=== PATIENT | female | born 1955 | race Caucasian/White ===

== ENCOUNTER 2017-07-22 17:31 | Emergency (ER) | payer OTHER ==
[~2017-07-22] VITALS: Ht 167.6 cm; Wt 69.5 kg
[~2017-07-22 17:31] MED LIST: ASCO10003 PO; HYDR1CAP85 PO; LEVO75TA36 PO; OMEG340C PO; ST J1CAP PO
[2017-07-22 17:53] VITALS: Ht 167.6 cm; Wt 69.5 kg
[2017-07-22] MEDS ORDERED: LISI40TA PO (18:04)
[2017-07-22] MEDS ORDERED: HYDROmorphone INJ 1 MG/ML SYR IV STA ×4 (19:12→22:38)
[2017-07-22] MEDS ORDERED: METOCLOPRAMIDE HCL INJ 5 MG/ML 2 ML VIAL IV STA (19:12)
--- NOTE | 2017-07-22 19:16 | EMERGENCY ROOM VISIT NOTE ---
History Report prepared by Jarrett: Schuyler Potts Under the Supervision of: Dr. Mirza Vines M.D. First contact with patient: 19:00 Chief Complaint: ABDOMINAL PAIN Stated Complaint: ABDOMINAL PAIN Nursing Triage Summary: pt reports for 3 weeks having constipation then diarrhea has hx of diverticulosis irritable bowel History of Present Illness The patient is a 61 year old female who presents to the Emergency Room with complaints of constant abdominal pain for the past 2 nights. She currently rates her discomfort as a 10/10 in severity. The patient states that a couple weeks ago she also had problems with constipation, though she then had diarrhea. The patient additionally notes that she has been passing a lot of gas. She states that she has a history of IBS and diverticulosis. The patient states that she does not have an ostomy in place. She reports that she also has a history of an appendectomy, and some of her intestines removed. The patient notes that she still has her gall bladder, and this morning she took Tylenol and Aleve. Source of History: patient Onset: two nights ago Position: abdomen Symptom Intensity: 10/10 Timing: constant Associated Symptoms: + diarrhea Note: Associated symptoms: Passing gas. Review of Systems See HPI for pertinent positives & negatives. A total of 10 systems reviewed and were otherwise negative. Past Medical & Surgical Medical Problems: (1) Benign hypertension (2) Diverticulitis (3) Diverticulosis (4) Laparoscopy (5) Ovarian cyst Social History Smoking Status: Current Every Day Smoker Alcohol Use: heavy Drug Use: marijuana Marital Status: single, Housing Status: lives with family Occupation Status: employed, disabled Current/Historical Medications Scheduled Nmpitrwikcp-Retcmokrwhb-Iuw C- (Glucosamine Chondroitin), 1 CAP PO QAM Levothyroxine Sodium (Levothyroxine Sodium), 100 MCG PO DAILY Lisinopril (Zestril), 40 MG PO DAILY Tiro-3 Fatty Acids (Tiro 3), 3 CAP PO BID Newton's Wort ([place] Perf (St Tam Wort), 300 MG PO TID Scheduled PRN Clonazepam (Clonazepam), 0.25 MG PO DAILY PRN for Anxiety Hydroxyzine Hcl (Atarax), 10 MG PO DAILY PRN for Itching Allergies Coded Allergies: Nickel (Verified Allergy, Unknown, Unknown, 07/22/17) Physical Exam Vital Signs Date Time Temp Pulse Resp B/P (MAP) Pulse Ox O2 Delivery O2 Flow Rate FiO2 07/23/17 03:45 37.1 106 16 137/71 97 07/23/17 02:21 37.1 106 18 125/73 97 Room Air 07/23/17 00:00 80 20 142/82 97 Room Air 07/22/17 23:54 38.0 100 20 143/81 92 Room Air 07/22/17 22:48 108 20 138/77 95 Room Air 07/22/17 21:00 99 20 149/78 97 Room Air 07/22/17 17:53 37.1 107 18 134/65 96 Room Air Physical Exam GENERAL: Patient is an uncomfortable-appearing well-nourished female HEAD: Normocephalic atraumatic EYES: Ocular movements intact pupils equal and react to light OROPHARYNX mucous membranes are moist no exudates present no erythema or edema present NECK: Supple no nuchal rigidity CHEST: Good equal expansion LUNGS: Hyperventilating. Clear and equal to auscultation CARDIAC: Normal S1 and S2 ABDOMEN: Tender in the right upper quadrant. Soft no guarding BACK: No CVA tenderness EXTREMITIES: No pain upon palpation normal muscle strength in all groups no clubbing cyanosis or edema NEURO: Patient is following commands and answering questions appropriately. Alert and oriented x3 Cranial Nerves 2-12 grossly intact Medical Decision & Procedures ER Provider Diagnostic Interpretation: Radiology results as stated below per my review and radiologist interpretation: ABDOMEN AND PELVIS CT WITH IV AND ORAL CONTRAST CT DOSE: 343.18 mGy.cm HISTORY: Right upper quadrant abdominal pain. TECHNIQUE: Multiaxial CT images of the abdomen and pelvis were performed following the use of intravenous and oral contrast. A dose lowering technique was utilized adhering to the principles of ALARA. COMPARISON STUDY: Abdomen and pelvis CT 08/09/2013. FINDINGS: Artifact versus filling defects within the right lower lobe pulmonary arteries. Mild dependent changes seen at the lung bases. Geographic increased density within the femoral heads consistent with avascular necrosis . No femoral head collapse at this time. Severe degenerative disc disease at the L4-5 disc space. The liver, spleen, adrenal glands, and pancreas are unremarkable. The gallbladder is distended. No gallbladder wall thickening. Normal caliber common bile duct. Trace perihepatic and perisplenic fluid. Small amount of fluid along the right paracolic gutter. Small amount of pelvic free fluid. The bladder is unremarkable. The uterus is within normal limits. No change in the left gluteal intramuscular fat-containing lesion. This favors a lipoma. Focal scarring within the upper pole of the left kidney. The right kidney is mildly enlarged compared to the prior study. No hydronephrosis. Thickening within the distal sigmoid colon. Multiple colonic diverticula. Small foci of extraluminal gas within the deep pelvis surrounding the thickened distal sigmoid colon. There is mild pericolonic fat stranding. Therefore, these findings likely represent microperforation secondary to acute diverticulitis. Small loculated gas and fluid collection within the deep pelvis which measures 4 cm. This is consistent with a pericolonic abscess. Mild thickening within the small bowel loops is likely reactive to the suspected mild peritonitis. There is mild diffuse mesenteric fat stranding/edema. Postoperative changes consistent with prior right hemicolectomy. IMPRESSION: 1. Moderate thickening at the distal sigmoid colon mild pericolonic fat stranding. There is also a 4 cm pericolonic abscess and a few small foci of extraluminal gas surrounding the thickened distal sigmoid colon. Therefore, findings are consistent with acute sigmoid diverticulitis with perforation and abscess formation. Recommend follow up to resolution to exclude the less likely possibility of an underlying colonic mass. 2. Mild mesenteric edema, mild thickening of the small bowel loops, and a small amount of fluid within the pelvis. This is likely reactive to the suspected peritonitis. 3. Mildly distended gallbladder. No gallbladder wall thickening. 4. Interval enlargement of the right kidney compared to the prior study. This is of uncertain clinical significance. Recommend correlation with renal function studies. No hydronephrosis. 5. Possible filling defects seen within the right lower lobe pulmonary arteries. This could be due to artifact. However, follow chest CTA is recommended to exclude the possibility of a pulmonary embolism. 6. Additional findings as described above. Electronically signed by: Ivan Baird M.D. 07/22/2017 10:31 PM Dictated Date/Time: 07/22/2017 10:08 PM ABDOMINAL ULTRASOUND, RIGHT UPPER QUADRANT HISTORY: Right upper quadrant abdominal pain. COMPARISON: Abdomen and pelvis CT 08/09/2013. FINDINGS: Pancreas: The pancreatic tail is obscured by overlying bowel gas. The remaining portions of the pancreas are within normal limits. Liver: No hepatic masses. Trace perihepatic ascites. Gallbladder: Mildly distended. No gallstones. There may be a small amount of sludge versus artifact. No gallbladder wall thickening. CBD: 4 mm. Right kidney: No hydronephrosis. IMPRESSION: 1. The gallbladder is mildly distended. No gallstones or gallbladder wall thickening. Artifact versus sludge within the gallbladder. 2. Trace perihepatic ascites. Electronically signed by: Ivan Baird M.D. 07/22/2017 8:37 PM Dictated Date/Time: 07/22/2017 8:35 PM CHEST ONE VIEW PORTABLE HISTORY: Right upper quadrant abdominal pain. COMPARISON: Chest 11/20/2012. FINDINGS: The lungs are clear. Cardiac silhouette is normal in size. No pleural effusions. No pneumothorax. IMPRESSION: No acute process. Electronically signed by: Ivan Baird M.D. 07/22/2017 9:22 PM Dictated Date/Time: 07/22/2017 9:21 PM CTA CHEST: No evidence of PE. Lungs are clear. No pleural effusions. No adenopathy. Heart size is normal. Aorta is unremarkable. Perihepatic complex ascites. Consider proteinaceous material or blood products. This is incompletely imaged Radiologist: Remy Garcia MD Laboratory Results 07/22/17 19:15 Red Blood Count 4.53, Mean Corpuscular Volume 81.7, Mean Corpuscular Hemoglobin 28.3, Mean Corpuscular Hemoglobin Concent 34.6, Mean Platelet Volume 9.1, Neutrophils (%) (Auto) 87.9, Lymphocytes (%) (Auto) 7.0, Monocytes (%) (Auto) 4.8, Eosinophils (%) (Auto) 0.0, Basophils (%) (Auto) 0.1, Neutrophils # (Auto) 13.03, Lymphocytes # (Auto) 1.04, Monocytes # (Auto) 0.71, Eosinophils # (Auto) 0.00, Basophils # (Auto) 0.02 07/22/17 19:15 Test 07/22/17 19:15 07/22/17 20:45 White Blood Count 14.83 K/uL (4.8-10.8) Red Blood Count 4.53 M/uL (4.2-5.4) Hemoglobin 12.8 g/dL (12.0-16.0) Hematocrit 37.0 % (37-47) Mean Corpuscular Volume 81.7 fL (80-100) Mean Corpuscular Hemoglobin 28.3 pg (25-34) Mean Corpuscular Hemoglobin Concent 34.6 g/dl (32-36) Platelet Count 342 K/uL (130-400) Mean Platelet Volume 9.1 fL (7.4-10.4) Neutrophils (%) (Auto) 87.9 % Lymphocytes (%) (Auto) 7.0 % Monocytes (%) (Auto) 4.8 % Eosinophils (%) (Auto) 0.0 % Basophils (%) (Auto) 0.1 % Neutrophils # (Auto) 13.03 K/uL (1.4-6.5) Lymphocytes # (Auto) 1.04 K/uL (1.2-3.4) Monocytes # (Auto) 0.71 K/uL (0.11-0.59) Eosinophils # (Auto) 0.00 K/uL (0-0.5) Basophils # (Auto) 0.02 K/uL (0-0.2) RDW Standard Deviation 44.4 fL (36.4-46.3) RDW Coefficient of Variation 15.0 % (11.5-14.5) Immature Granulocyte % (Auto) 0.2 % Immature Granulocyte # (Auto) 0.03 K/uL (0.00-0.02) Dohle Bodies 1+ Anion Gap 7.0 mmol/L (3-11) Est Creatinine Clear Calc Drug Dose 58.2 ml/min Estimated GFR () 74.9 Estimated GFR (Non- 64.6 BUN/Creatinine Ratio 11.4 (10-20) Calcium Level 9.0 mg/dl (8.5-10.1) Total Bilirubin 0.8 mg/dl (0.2-1) Aspartate Amino Transf (AST/SGOT) 13 U/L (15-37) Alanine Aminotransferase (ALT/SGPT) 15 U/L (12-78) Alkaline Phosphatase 97 U/L (45-117) Total Protein 8.2 gm/dl (6.4-8.2) Albumin 3.3 gm/dl (3.4-5.0) Globulin 4.9 gm/dl (2.5-4.0) Albumin/Globulin Ratio 0.7 (0.9-2) Lipase 56 U/L (73-393) Urine Color KAPIL Urine Appearance CLEAR (CLEAR) Urine pH 5.5 (4.5-7.5) Urine Specific [place] 1.020 (1.000-1.030) Urine Protein 1+ (NEG) Urine Glucose (UA) NEG (NEG) Urine Ketones 1+ (NEG) Urine Occult Blood 1+ (NEG) Urine Nitrite NEG (NEG) Urine Bilirubin NEG (NEG) Urine Urobilinogen NEG (NEG) Urine Leukocyte Esterase NEG (NEG) Urine RBC 10-30 /hpf (0-4) Urine WBC 1-5 /hpf (0-5) Urine Epithelial Cells >30 /lpf (0-5) Urine Renal Epithelial Cells 0-5 /lpf (0-5) Urine Bacteria NEG (NEG) Urine Hyaline Casts 10-30 /lpf (0-5) Urine Mucus PRESENT (NONE PRSENT) Labs reviewed by ED physician. Medications Administered Medications (Trade) Dose Ordered Sig/Ceci Route Start Time Stop Time Status Last Admin Dose Admin Hydromorphone HCl (Dilaudid Inj) 1 mg NOW STAT IV 07/22/17 19:12 07/22/17 19:14 DC 07/22/17 19:19 1 MG Metoclopramide HCl (Reglan Inj) 10 mg NOW STAT IV 07/22/17 19:12 07/22/17 19:14 DC 07/22/17 19:19 10 MG Hydromorphone HCl (Dilaudid Inj) 1 mg NOW STAT IV 07/22/17 19:47 07/22/17 19:49 DC 07/22/17 19:51 1 MG Ondansetron HCl (Zofran Inj) 4 mg STK-MED ONCE .ROUTE 07/22/17 19:49 07/22/17 19:50 DC 07/22/17 19:51 4 MG Hydromorphone HCl (Dilaudid Inj) 1 mg NOW STAT IV 07/22/17 20:36 07/22/17 20:37 DC 07/22/17 20:59 1 MG Hydromorphone HCl (Dilaudid Inj) 1 mg NOW STAT IV 07/22/17 22:38 07/22/17 22:40 DC 07/22/17 22:45 1 MG Piperacillin Sod/ Tazobactam Sod (Zosyn Iv) 4.5 gm NOW STAT IV 07/22/17 22:38 07/22/17 22:40 DC 07/22/17 22:45 4.5 GM Sodium Chloride 1,000 ml @ 999 mls/hr Q1H1M STAT IV 07/22/17 22:38 07/22/17 23:38 DC 07/22/17 22:46 999 MLS/HR Sodium Chloride 1,000 ml @ 999 mls/hr Q1H1M STAT IV 07/22/17 23:19 07/23/17 00:19 DC 07/22/17 23:53 999 MLS/HR Daptomycin 420 mg/ Sodium Chloride 58.4 ml @ 100 mls/hr NOW STAT IV 07/22/17 23:41 07/23/17 00:16 DC 07/22/17 23:41 100 MLS/HR Hydromorphone HCl (Dilaudid Inj) 1 mg NOW STAT IV 07/23/17 00:11 07/23/17 00:12 DC 07/23/17 00:25 1 MG Hydromorphone HCl (Dilaudid Inj) 1 mg NOW STAT IV 07/23/17 02:35 07/23/17 02:36 DC 07/23/17 02:35 1 MG ED Course 1900: Past medical records reviewed. The patient was evaluated in room A4. A complete history and physical examination was performed. 1911: Reglan 10mg IV, Dilaudid 1mg IV 1946: Zofran 4mg IV, Dilaudid 1mg IV 1948: Zofran 4mg IV 6: Dilaudid 1mg IV 2238: Sodium Chloride 1000 ml @ 999 mls/hr, Zosyn 4.5gm IV, Dilaudid 1mg IV 1301: I reevaluated the patient, and I discussed the treatment plan with her, and she was agreeable 2311: I discussed the patient's case with Dr. Kalpesh Layton [facility], he has agreed to evaluate the patient for further management and care. 2319: Sodium Chloride 1000 ml @ 999 mls/hr IV 2341: Daptomycin 420mg/ Sodium Chloride 58.4ml @ 100mls/hr IV Medical Decision Differential diagnosis: Etiologies such as appendicitis, diverticulitis, PUD, biliary pathology, UTI, pancreatitis, obstruction, mesenteric ischemia, aortic pathology, infections, inflammatory bowel disease, renal colic, as well as others were entertained. This is a 61-year-old female presents emergency department complaining of abdominal pain. An IV was established, the patient given multiple doses of Dilaudid trying get her pain under control. Due to the elevation in the white blood cell count on her physical exam she was sent for CAT scan of the abdomen pelvis. This was concerning for diverticulitis with abscess perforation. I did discuss the case with the surgery team who asked that the patient be transferred. I did discuss this with the patient. The patient wishes to go to [place] however [place] is full. Patient then did wish to go to [place]. I discussed the case with colorectal surgery in [place] who agreed to accept the patient. Patient was in agreement with the treatment plan. Medication Reconcilliation Current Medication List: was personally reviewed by me Blood Pressure Screening Patient's blood pressure: Elevated blood pressure Monitored by the [facility] Consults Time Called: 2241 Consulting Physician: Dr. Kalpesh [facility] Returned Call: [phone] I discussed the patient's case with Dr. Kalpesh [facility], he has agreed to evaluate the patient for further management and care. Impression Primary Impression: Diverticulitis of colon with perforation Critical Care I have personally spent greater than 90 minutes of critical care time in the direct management of this patient. This includes bedside care, interpretation of diagnostic studies, and testing, discussion with consultants, patient, and family members, and other required patient management activities. This 90 minutes is in excess of all separately billable procedures. Scribe Attestation The scribe's documentation has been prepared under my direction and personally reviewed by me in its entirety. I confirm that the note above accurately reflects all work, treatment, procedures, and medical decision making performed by me. Departure Information Dispostion Transfer Acute Care Facility Referrals Armando Brown M.D. (PCP) Patient Instructions My [facility] Problem Qualifiers Primary Impression: Diverticulitis of colon with perforation Diverticulitis bleeding: unspecified bleeding status Qualified Codes: K57.20 - Diverticulitis of large intestine with perforation and abscess without bleeding
[2017-07-22 19:32] LABS: HEMOGLOBIN 12.8 g/dL (12.0-16.0); MEAN CELL VOLUME 81.7 fL (80-100); MEAN CORPUSCULAR HEMOGLOBIN 28.3 pg (25-34); MEAN CORPUSCULAR HGB CONC 34.6 g/dl (32-36); MEAN PLATELET VOLUME 9.1 fL (7.4-10.4); PLATELET COUNT 342 K/uL (130-400); RED CELL DISTRIBUTION WIDTH SD 44.4 fL (36.4-46.3); WHITE BLOOD COUNT 14.83 K/uL (4.8-10.8)
[2017-07-22] MEDS ORDERED: ONDANSETRON INJ 2 MG/ML 2 ML VIAL IV STA (19:47)
[2017-07-22 19:49] LABS: ALBUMIN 3.3 gm/dl (3.4-5.0); CREATININE 0.95 mg/dl (0.60-1.20); POTASSIUM 3.4 mmol/L (3.5-5.1)
[2017-07-22] MEDS ORDERED: ONDANSETRON INJ 2 MG/ML 2 ML VIAL ONE (19:49)
[2017-07-22 19:51] LABS: TOTAL PROTEIN 8.2 gm/dl (6.4-8.2)
[2017-07-22 19:56] LABS: BASO % 0.1 %; BASO ABS # 0.02 K/uL (0-0.2); IG# 0.03 K/uL (0.00-0.02); LYMPH ABS # 1.04 K/uL (1.2-3.4); MONO % 4.8 %; MONO ABS # 0.71 K/uL (0.11-0.59); NEUT % 87.9 %; NEUT ABS # 13.03 K/uL (1.4-6.5)
--- NOTE | 2017-07-22 20:39 | DIAGNOSTIC IMAGING REPORT ---
ABDOMINAL ULTRASOUND, RIGHT UPPER QUADRANT HISTORY: Right upper quadrant abdominal pain. COMPARISON: Abdomen and pelvis CT 08/09/2013. FINDINGS: Pancreas: The pancreatic tail is obscured by overlying bowel gas. The remaining portions of the pancreas are within normal limits. Liver: No hepatic masses. Trace perihepatic ascites. Gallbladder: Mildly distended. No gallstones. There may be a small amount of sludge versus artifact. No gallbladder wall thickening. CBD: 4 mm. Right kidney: No hydronephrosis. IMPRESSION: 1. The gallbladder is mildly distended. No gallstones or gallbladder wall thickening. Artifact versus sludge within the gallbladder. 2. Trace perihepatic ascites. Electronically signed by: Ivan Baird M.D. 07/22/2017 8:37 PM Dictated Date/Time: 07/22/2017 8:35 PM
--- NOTE | 2017-07-22 21:23 | DIAGNOSTIC IMAGING REPORT ---
CHEST ONE VIEW PORTABLE HISTORY: Right upper quadrant abdominal pain. COMPARISON: Chest 11/20/2012. FINDINGS: The lungs are clear. Cardiac silhouette is normal in size. No pleural effusions. No pneumothorax. IMPRESSION: No acute process. Electronically signed by: Ivan Baird M.D. 07/22/2017 9:22 PM Dictated Date/Time: 07/22/2017 9:21 PM
[2017-07-22] MEDS ORDERED: OPTIRAY 320 IV PRN ×2 (21:30→23:00)
--- NOTE | 2017-07-22 22:32 | DIAGNOSTIC IMAGING REPORT ---
ABDOMEN AND PELVIS CT WITH IV AND ORAL CONTRAST CT DOSE: 343.18 mGy.cm HISTORY: Right upper quadrant abdominal pain. TECHNIQUE: Multiaxial CT images of the abdomen and pelvis were performed following the use of intravenous and oral contrast. A dose lowering technique was utilized adhering to the principles of ALARA. COMPARISON STUDY: Abdomen and pelvis CT 08/09/2013. FINDINGS: Artifact versus filling defects within the right lower lobe pulmonary arteries. Mild dependent changes seen at the lung bases. Geographic increased density within the femoral heads consistent with avascular necrosis . No femoral head collapse at this time. Severe degenerative disc disease at the L4-5 disc space. The liver, spleen, adrenal glands, and pancreas are unremarkable. The gallbladder is distended. No gallbladder wall thickening. Normal caliber common bile duct. Trace perihepatic and perisplenic fluid. Small amount of fluid along the right paracolic gutter. Small amount of pelvic free fluid. The bladder is unremarkable. The uterus is within normal limits. No change in the left gluteal intramuscular fat-containing lesion. This favors a lipoma. Focal scarring within the upper pole of the left kidney. The right kidney is mildly enlarged compared to the prior study. No hydronephrosis. Thickening within the distal sigmoid colon. Multiple colonic diverticula. Small foci of extraluminal gas within the deep pelvis surrounding the thickened distal sigmoid colon. There is mild pericolonic fat stranding. Therefore, these findings likely represent microperforation secondary to acute diverticulitis. Small loculated gas and fluid collection within the deep pelvis which measures 4 cm. This is consistent with a pericolonic abscess. Mild thickening within the small bowel loops is likely reactive to the suspected mild peritonitis. There is mild diffuse mesenteric fat stranding/edema. Postoperative changes consistent with prior right hemicolectomy. IMPRESSION: 1. Moderate thickening at the distal sigmoid colon mild pericolonic fat stranding. There is also a 4 cm pericolonic abscess and a few small foci of extraluminal gas surrounding the thickened distal sigmoid colon. Therefore, findings are consistent with acute sigmoid diverticulitis with perforation and abscess formation. Recommend follow up to resolution to exclude the less likely possibility of an underlying colonic mass. 2. Mild mesenteric edema, mild thickening of the small bowel loops, and a small amount of fluid within the pelvis. This is likely reactive to the suspected peritonitis. 3. Mildly distended gallbladder. No gallbladder wall thickening. 4. Interval enlargement of the right kidney compared to the prior study. This is of uncertain clinical significance. Recommend correlation with renal function studies. No hydronephrosis. 5. Possible filling defects seen within the right lower lobe pulmonary arteries. This could be due to artifact. However, follow chest CTA is recommended to exclude the possibility of a pulmonary embolism. 6. Additional findings as described above. Electronically signed by: Ivan Baird M.D. 07/22/2017 10:31 PM Dictated Date/Time: 07/22/2017 10:08 PM
[2017-07-22] MEDS ORDERED: DAPTOMYCIN IV STA ×2 (22:38→23:41)
[2017-07-22] MEDS ORDERED: SODIUM CHLORIDE 0.9% IV STA ×2 (22:38→23:41)
[2017-07-22] MEDS ORDERED: SODIUM CHLORIDE 0.9% 1000ML 1,000 ML IV STA ×2 (22:38→23:19)
[2017-07-22] MEDS ORDERED: PIPERACILLIN/TAZOBACTAM 4.5 GM/100ML D5W IV STA (22:38)
[2017-07-22] MEDS ORDERED: GLUC1CAP35 PO (22:42)
[2017-07-22] MEDS ORDERED: LEVO100T7 PO (22:42)
[2017-07-22] MEDS ORDERED: KLN5X PO (22:42)
[2017-07-22] MEDS ORDERED: HYDR-389 PO (22:42)
--- NOTE | 2017-07-22 23:03 | Progress Note ---
Progress Note Date of Service Jul 22, 2017. Progress Note 61-year-old female with CT scan that shows diverticulitis with 4 cm pelvic abscess. Images reviewed, recommend transfer to hospital with interventional radiology for possible percutaneous drainage.
[2017-07-22] MEDS ORDERED: DAPTOmycin IV 400 MG in SYRINGE 0 ML IV STA (23:29)
[2017-07-23] MEDS ORDERED: HYDROmorphone INJ 1 MG/ML SYR IV STA ×2 (00:11→02:35)
[2017-07-23] MEDS ORDERED: HYDROmorphone INJ 1 MG/ML SYR IV PRN (02:45)
[2017-07-23 03:45] VITALS: BP 137/71; PULSE 106; TEMP 37.1; O2SAT 97
--- NOTE | 2017-07-23 06:33 | DIAGNOSTIC IMAGING REPORT ---
CT ANGIOGRAM OF THE CHEST CLINICAL HISTORY: Pain, possible bony artery filling defect on abdominal CT scan COMPARISON STUDY: Chest x-ray dated 07/22/2017 TECHNIQUE: Following the IV administration of 93 mL of [id number]-320, CT angiogram of the thorax was performed from the thoracic inlet to the lung bases utilizing the pulmonary embolus protocol. Images are reviewed in the axial, sagittal, and coronal planes. IV contrast was administered without complication. MIP imaging was performed. A dose lowering technique was utilized adhering to the principles of ALARA. CT DOSE: 236.90 mGy.cm FINDINGS: No pathologically enlarged axillary mediastinal or hilar lymph nodes were visualized. There was no evidence of thoracic aortic dilatation. There were no pulmonary artery filling defects to indicate acute pulmonary embolism. No pleural effusions are visualized. There is no evidence of focal pulmonary consolidation. There are dependent atelectatic changes. There is mild emphysema. Images through the upper abdomen reveal hyperdense ascites IMPRESSION: 1. No evidence of acute pulmonary embolism 2. No evidence of focal pulmonary consolidation 3. Increased ascites marginating the liver. This is hyperdense and could representing hemoperitoneum. Clinical correlation in this regard is advocated Electronically signed by: Bhavesh Colón M.D. 07/23/2017 6:32 AM Dictated Date/Time: 07/23/2017 6:26 AM
== END 2017-07-23 03:46 | disposition short-term general hospital (02) ==
LOC: C.EDB 17:32 → C.EDA 07-23 03:46
DX: K57.20 Diverticulitis of large intestine with perforation and abscess without bleeding (principal); D72.829 Elevated white blood cell count, unspecified; K58.9 Irritable bowel syndrome, unspecified; I10 Essential (primary) hypertension; F17.200 Nicotine dependence, unspecified, uncomplicated; Z98.890 Other specified postprocedural states; Z90.49 Acquired absence of other specified parts of digestive tract; Z91.048 Other nonmedicinal substance allergy status

== ENCOUNTER → 2017-08-04 | Outpatient (CLI) | payer OTHER ==
[~2017-08-04] MED LIST changes: -ASCO10003 PO; +GLUC1CAP35 PO; +HYDR-389 PO; -HYDR1CAP85 PO; +KLN5X PO; +LEVO100T7 PO; -LEVO75TA36 PO; +LISI40TA PO
--- NOTE | 2017-08-04 14:13 | DIAGNOSTIC IMAGING REPORT ---
ABD/PELVIS ORAL CONT ONLY CT DOSE: 498.20 mGycm HISTORY: Pain. Nausea. ABDOMINAL PAIN BILATERA LOWER QUADRANTS TECHNIQUE: Multiaxial CT images of the abdomen and pelvis were performed following the use of oral contrast. A dose lowering technique was utilized adhering to the principles of ALARA. COMPARISON STUDY: 07/22/2017 FINDINGS: Lung bases are generally clear. Configuration of liver is unremarkable. Mild gallbladder wall thickening. No significant biliary ductal distention. There is interval placement of a transverse colonic loop colostomy. Distention of the proximal to mid small bowel with moderate wall thickening of the bowel immediately proximal to its entrance to the ostomy site. Considerable fecal material within the residual a sending colon. Small amount of abdominal and to a lesser extent pelvic ascites. Marked wall edematous change of the sigmoid colon. Right central pelvic abscess measuring 5.65 4.0 cm. Mild right renal hydronephrosis. No significant left renal hydronephrosis. IMPRESSION: 1. Interval placement of a transverse loop colostomy. 2. Persistent wall edema bowel proximal to the ostomy site with apparent partial secondary small bowel obstructive change. 3. Marked edematous change of the sigmoid colon perhaps slightly improved from the prior exam. 4. Right central pelvic abscess/collection measuring 3.9 x 5.6 cm. 5. Mild wall edema of the gallbladder. The above report was generated using voice recognition software. It may contain grammatical, syntax or spelling errors. Electronically signed by: Alejandro Yousif M.D. 08/04/2017 2:11 PM Dictated Date/Time: 08/04/2017 2:00 PM
== END | disposition home or self-care (01) ==
LOC: C.CTS 11:37
PROVIDERS: ATTEND Colon & Rectal Surgery
DX: R10.31 Right lower quadrant pain (principal); R10.32 Left lower quadrant pain; K57.32 Diverticulitis of large intestine without perforation or abscess without bleeding; K57.80 Diverticulitis of intestine, part unspecified, with perforation and abscess without bleeding; Z93.3 Colostomy status; R60.0 Localized edema; N73.9 Female pelvic inflammatory disease, unspecified

== ENCOUNTER → 2017-08-24 | Outpatient (CLI) | payer OTHER ==
[~2017-08-24] MED LIST changes: +GARL1CAP PO; +OMEG10007 PO; +TRAM-10 PO; +TURMERIC PO
--- NOTE | 2017-08-24 12:28 | DIAGNOSTIC IMAGING REPORT ---
SINGLE CONTRAST GASTROGRAFIN ENEMA CLINICAL HISTORY: Lower abdominal pain. History of perforated diverticulitis with colon resections and loop colostomy. COMPARISON STUDY: Abdominal CT dated 08/04/2017. PROCEDURE: The abdominal Armhole Baster Jumpbasting radiograph is performed. A retroverted catheter was then inserted into the anus a single contrast Gastrografin enema is performed. Spot fluoroscopic views of the distal colon were obtained, as well as overhead radiographs both pre and post procedure. FINDINGS: An abdominal boiler washer radiograph shows a nonobstructed abdominal bowel gas pattern. An ostomy is noted in the left lower quadrant. Suture closure projects over the right mid abdomen. A large calcification in the left pelvis is similar to previous. The skeletal structures are osteopenic. There is moderate lumbosacral spondylosis as well as mild scoliosis. On the enema images, there is normal filling of the rectosigmoid colon. No significant fecal impaction is identified. There is moderate to advanced diverticulosis of the left colon. No extraluminal contrast is identified. Contrast reaches the patient's ostomy in the left mid abdomen. The left colon is largely decompressed on the postevacuation images. Fluoroscopy time: 0.5 minutes. Fluoroscopic images: 13 IMPRESSION: 1. No significant fecal impaction is seen. 2. Moderate to advanced diverticulosis of the left colon. 3. No extraluminal contrast is seen. Electronically signed by: Ken Tatum M.D. 08/24/2017 12:26 PM Dictated Date/Time: 08/24/2017 12:22 PM
== END | disposition home or self-care (01) ==
LOC: C.RAD 09:54
PROVIDERS: ATTEND Colon & Rectal Surgery
DX: Z09 Encounter for follow-up examination after completed treatment for conditions other than malignant neoplasm (principal); K57.30 Diverticulosis of large intestine without perforation or abscess without bleeding

== ENCOUNTER → 2017-08-28 | Outpatient (CLI) | payer OTHER ==
--- NOTE | 2017-08-28 15:40 | DIAGNOSTIC IMAGING REPORT ---
CT SCAN OF THE ABDOMEN AND PELVIS WITHOUT CONTRAST CLINICAL HISTORY: History of abscess. Right upper quadrant abdominal pain. COMPARISON STUDY: Noncontrast CT scan dated 08/04/2017 TECHNIQUE: CT scan of the abdomen and pelvis was performed from the lung bases to the proximal femurs. Images are reviewed in the axial, sagittal, and coronal planes. IV contrast was not administered for this examination. A dose lowering technique was utilized adhering to the principles of ALARA. CT DOSE: 272.24 mGy.cm FINDINGS: Lower chest: There are mild dependent atelectatic changes present. Liver: The unenhanced liver is normal in size, contour, and attenuation. There is no intrahepatic biliary ductal dilatation. Gallbladder: Unremarkable. Spleen: Normal in size and attenuation. Pancreas: Unremarkable. Adrenal glands: Unremarkable. Kidneys: No renal, ureteral, or bladder calculi are visualized. Bowel: There are no transition zones to indicate bowel obstruction. There is a left lower quadrant double barrel colostomy. There is sigmoid diverticulosis. There are suspected sigmoid wall thickening. There is been interval decrease in the size of the right lower quadrant abscess estimated to measure 22 mm. Evaluation is somewhat limited given the lack of intravenously administered contrast. Peritoneum: There is no intraperitoneal free air or abdominal ascites. Vasculature: The abdominal aorta is normal in course and caliber. Adenopathy: None. Pelvic viscera: The bladder, and pelvic viscera are unremarkable. Skeletal structures: There are erosive changes and discogenic endplate sclerosis at the L 4-5 level. IMPRESSION: 1. No evidence of bowel obstruction. No evidence of free air 2. Double barrel left lower quadrant colostomy 3. Sigmoid diverticulosis and sigmoid wall thickening 4. Interval decrease in the size of the right pelvic abscess, currently estimated to measure 22 mm. Electronically signed by: Bhavesh Colón M.D. 08/28/2017 3:39 PM Dictated Date/Time: 08/28/2017 3:30 PM
== END | disposition home or self-care (01) ==
LOC: C.CTS 13:22
PROVIDERS: ATTEND Colon & Rectal Surgery
DX: R10.11 Right upper quadrant pain (principal); Z09 Encounter for follow-up examination after completed treatment for conditions other than malignant neoplasm; K57.30 Diverticulosis of large intestine without perforation or abscess without bleeding

== ENCOUNTER → 2017-10-05 | Day surgery (SDC) | payer OTHER ==
[2017-09-04 13:02] VITALS: BMI 22.0
[~2017-10-05] VITALS: Ht 167.6 cm; Wt 63.6 kg
[~2017-10-05] MED LIST changes: -GLUC1CAP35 PO; -HYDR-389 PO; -KLN5X PO; +LIDOCAINE HCL 2% 2 ML VIAL (20MG/ML) ONE; -LISI40TA PO; -OMEG340C PO; +PROPOFOL IV EMULSION 10 MG/ML 20 ML VIAL ONE; -ST J1CAP PO
[2017-10-05 13:18] VITALS: Ht 167.6 cm; Wt 63.6 kg
--- NOTE | 2017-10-05 13:47 | Endo History and Physical ---
History & Physical Date of Service: October 05, 2017. Chief Complaint: SCREENING Referring Physician: DR. TANG History of Present Illness For colonoscopy/anoscopy Past Surgical History Hx Cardiac Surgery: No Hx Internal Defibrillator: No Hx Pacemaker: No Hx Abdominal Surgery: No (COLON RESECTION/APPY, COLON RESECTION/COLOSTOMY, OVARIAN CYST REMOVED) Hx of Implantable Prosthesis: No Hx Post-Op Nausea and Vomiting: No Hx Cancer Surgery: Yes (SCC EYELID) Hx Thoracic Surgery: No Hx Orthopedic: No Hx Urinary Tract Surgery: No Family History None Social History Smoking Status: Former Smoker Hx Substance Use: No Hx Alcohol Use: Yes ("NOTHING RECENTLY") Allergies Coded Allergies: Nickel (Verified Allergy, Unknown, SKIN IRRITATION/ITCHING, 10/05/17) Uncoded Allergies: WOOL (Allergy, Unknown, ITCHING, 09/04/17) Current Medications Reported Home Medications Medications Dose Route/Sig Max Daily Dose Days Date Category Ultram (Tramadol HCl) 50 Mg Tab 50 Mg PO Q4H PRN 09/04/17 Reported Garlic Oil 1500 (Garlic) 3 Mg Cap 1 Cap PO BID 09/04/17 Reported [Turmeric] 1,300 Mg PO TID 09/04/17 Reported [place]-3 (Fish Oil) 1 Ea Cap 2 Cap PO BID 09/04/17 Reported Levothyroxine Sodium 100 Mcg Tab 1 Tab PO QAM 09/04/17 Reported Vital Signs Weight (Kilograms): 63.64 Height (Feet): 5 Height (Inches): 6 Date Time Temp Pulse Resp B/P (MAP) Pulse Ox O2 Delivery O2 Flow Rate FiO2 10/05/17 13:26 36.7 88 18 134/80 (98) 97 Room Air Physical Exam General Appearance: WD/WN Respiratory/Chest: Respiratory effort: no dyspnea Cardiovascular: Heart Auscultation: RRR Abdomen: Inspection & Palpation: soft Hernia: pertinent finding (left side colostomy) Assessment and Plan Diverticulitis for anoscopy and colonoscopy via colostomy
--- NOTE | 2017-10-05 14:15 | Discharge Instructions ---
Endoscopy Patient Instructions Date / Procedure(s) Performed October 05, 2017. Colonoscopy Allergy Information Coded Allergies: Nickel (Verified Allergy, Unknown, SKIN IRRITATION/ITCHING, 10/05/17) Uncoded Allergies: WOOL (Allergy, Unknown, ITCHING, 09/04/17) Discharge Date / Findings October 05, 2017. few diverticula, increased mucus Medication Instructions Restart Stopped Medication(s): resume meds Reported Home Medications Medications Dose Route/Sig Max Daily Dose Days Date Category Ultram (Tramadol HCl) 50 Mg Tab 50 Mg PO Q4H PRN 09/04/17 Reported Garlic Oil 1500 (Garlic) 3 Mg Cap 1 Cap PO BID 09/04/17 Reported [Turmeric] 1,300 Mg PO TID 09/04/17 Reported [place]-3 (Fish Oil) 1 Ea Cap 2 Cap PO BID 09/04/17 Reported Levothyroxine Sodium 100 Mcg Tab 1 Tab PO QAM 09/04/17 Reported Provider Instructions Activity Restrictions - No exercising or heavy lifting for 24 hours. - Do not drink alcohol the day of the procedure. - Do not drive a car or operate machinery until the day after the procedure. - Do not make any important decisions or sign important papers in 24 hours after the procedure. Following Day: - Return to full activity which may include returning to work/school. Diet Start your diet with liquids and light foods (jello, soup, juice, toast). Then eat your usual diet if not nauseated. Treatment For Common After Affects For mild abdominal pain, bloating, or excessive gas: - Rest - Eat lightly - Lie on right side Follow-Up Information Follow-up with DR. TANG as scheduled Anesthesia Information What You Should Know You have had a procedure that required some medicine to reduce anxiety and discomfort. This treatment is called moderate sedation. After receiving the treatment, you may be sleepy, but you will be able to breathe on your own. The effects of the treatment may last for several hours. Follow these instructions along with Activity/Diet recommendations noted above: * Do NOT do anything where dizziness or clumsiness would be dangerous. * Rest quietly at home today, then you can be up and about tomorrow. * Have a responsible person stay with you the rest of today. * You may have had an I.V. today. If so, you may take the dressing off later today. Recommendations Call your doctor if: * Trouble breathing * Continuous vomiting for more than 24 hours * Temperature above 101 degrees * Severe abdominal pain or bloating * Pain not relieved by pain medicine ordered * There is increased drainage or redness from any incision * A large amount of rectal bleeding greater than 2-3 tablespoons. (If you had a polyp/s removed or have hemorrhoids, a small amount of blood - from the rectum is to be expected.) * You have any unanswered questions or concerns. IN THE EVENT OF A SERIOUS EMERGENCY, GO TO THE NEAREST EMERGENCY ROOM Your discharge instructions were prepared by provider Jeff Gould. Patient Instructions Signature Page Connie Warner Patient (or Guardian) Signature/Date: I have read and understand the instructions given to me by my caregivers. Caregiver/RN/Doctor Signature/Date: The above-named patient and/or guardian has received patient instructions on this date. + Original Patient Signature Page (only) stays with chart. Please make copy for patient.
[2017-10-05 14:48] VITALS: BP 140/88; PULSE 68; O2SAT 99
--- NOTE | 2017-10-05 14:51 | Anesthesiology Progress Note ---
Anesthesia Post Op Note Date & Time October 05, 2017 at 14:51 Vital Signs Pain Intensity: 0 Vital Signs Past 12 Hours Date Time Temp Pulse Resp B/P (MAP) Pulse Ox O2 Delivery O2 Flow Rate FiO2 10/05/17 14:33 84 18 141/89 (106) 100 Room Air 10/05/17 14:18 60 18 130/65 (86) 98 Room Air 10/05/17 13:26 36.7 88 18 134/80 (98) 97 Room Air Notes Mental Status: alert / awake / arousable, participated in evaluation Pt Amnestic to Procedure: Yes Nausea / Vomiting: adequately controlled Pain: adequately controlled Airway Patency, RR, SpO2: stable & adequate BP & HR: stable & adequate Hydration State: stable & adequate Anesthetic Complications: no major complications apparent
--- NOTE | 2017-10-05 15:47 | GI REPORT ---
Patient Name: Connie Warner Procedure Date: 10/05/2017 1:41 PM Date of : 1955 Admit Type: Outpatient Age: 62 Gender: Female Attending MD: Jeff Gould MD Procedure: Colonoscopy Providers: Jeff Gould MD Referring MD: Oliver Posey Indications: Follow-up of diverticulitis Medicines: Propofol total dose 230 mg IV, Lidocaine 40 mg IV Complications: No immediate complications. Estimated Blood Loss: Estimated blood loss: none. Procedure: Pre-Anesthesia Assessment: - Prior to the procedure, a History and Physical was performed, and patient medications, allergies and sensitivities were reviewed. The patient's tolerance of previous anesthesia was reviewed. - The risks and benefits of the procedure and the sedation options and risks were discussed with the patient. All questions were answered and informed consent was obtained. - Prior to the procedure, a History and Physical was performed, and patient medications, allergies and sensitivities were reviewed. The patient's tolerance of previous anesthesia was reviewed. - The risks and benefits of the procedure and the sedation options and risks were discussed with the patient. All questions were answered and informed consent was obtained. After I obtained informed consent, the scope was passed under direct vision. Throughout the procedure, the patient's blood pressure, pulse, and oxygen saturations were monitored continuously. The scope was introduced through the anus and descending colostomy and advanced to the ileocolonic anastomosis. The colonoscopy was performed without difficulty. The patient tolerated the procedure well. The quality of the bowel preparation was good. Findings: The perianal and digital rectal examinations were normal. A few diverticula were found in the recto-sigmoid colon and transverse colon. Increased mucus present. Impression: - Diverticulosis in the recto-sigmoid colon and in the transverse colon. - No specimens collected. Recommendation: - Discharge patient to home (ambulatory). - Continue present medications. - Return to referring physician as previously scheduled. Jeff Gould M.D. Jeff Gould MD 10/05/2017 2:23:02 PM This report has been signed electronically. Note Initiated On: 10/05/2017 1:41 PM Number of Addenda: 0 I attest to the content of the Intraoperative Record and orders documented therein, exceptions below {[id number]}
== END | disposition home or self-care (01) ==
LOC: C.GI 12:54
PROVIDERS: ATTEND Internal Medicine Gastroenterology
DX: Z12.11 Encounter for screening for malignant neoplasm of colon (principal); I10 Essential (primary) hypertension; K21.9 Gastro-esophageal reflux disease without esophagitis; M19.90 Unspecified osteoarthritis, unspecified site; F41.9 Anxiety disorder, unspecified; K57.30 Diverticulosis of large intestine without perforation or abscess without bleeding; Z87.891 Personal history of nicotine dependence